=== PATIENT | male | born 1985 | race Caucasian/White ===

== ENCOUNTER 2017-07-28 09:03 | Emergency (ER) | payer SELFPAY ==
[~2017-07-28] VITALS: Ht 177.8 cm; Wt 127.5 kg
[~2017-07-28 09:03] MED LIST: NO HOME MEDS
[2017-07-28] MEDS ORDERED: KEFLEX500 MG PO (10:26)
[2017-07-28 10:40] VITALS: BP 128/73
== END 2017-07-28 10:51 | disposition home or self-care (01) ==
LOC: EME 09:03
DX: J02.9 Acute pharyngitis, unspecified (principal); Z88.0 Allergy status to penicillin
CPT/HCPCS: 87651 90; 99281; 99284